=== PATIENT | female | born 1955 | race Caucasian/White ===

== ENCOUNTER 2024-12-13 17:07 | Emergency (ER) | payer OTHER, SELFPAY ==
[2024-12-13 17:10] VITALS: BP 167/91
--- NOTE | 2024-12-13 17:54 | ED.GENMED ---
History of Present Illness
General
Chief Complaint: Musculo-Skeletal Complaint
Time Seen by Provider: 12/13/24 17:54
History of Present Illness
History of Present Illness:
TIME OF INITIAL EVALUATION
- 6 PM
REVIEW OF OLD RECORDS
- The patient denies any significant past medical history. No old records available for review in [facility]
Note:
CHIEF COMPLAINT(S)
Inability to walk due to severe pain in the right leg, starting a week ago.
HISTORY OF PRESENT ILLNESS
The patient is a 69-year-old female who presents with severe pain in the right leg, described as 10 out of 10 in intensity, which began approximately a week ago. The pain originates from the lower back and radiates down the right leg. The patient
denies any trauma or injury at the onset of symptoms. Physical examination revealed significant pain when pressure was applied over the bursa region, suggesting inflammation, but there was no increased pain with palpation of the backbones. The
patient experiences worsening pain with elevation of the right leg and pressure applied to it, consistent with sciatica due to a possible pinched nerve.
After discussing possible causes, it was decided that the patient might benefit from oral steroid treatment, as x-rays would not be beneficial for evaluating soft tissues like nerves or bursa. The patient has been using ibuprofen at home, but with
minimal relief, especially over the last two days, which prompted the visit to the medical facility.
PHYSICAL EXAM
General: Alert, no acute distress.
Skin: Warm, dry.
Head: Normocephalic, atraumatic.
Neck: Supple, trachea midline.
Eye Ears, nose, mouth and throat: Oral mucosa moist.
Cardiovascular: Normal peripheral perfusion, No edema.
Respiratory: Respirations are non-labored.
Gastrointestinal: Abdomen nondistended, no pain on palpation.
Back: Normal range of motion, Normal alignment.
Musculoskeletal: Normal ROM, normal strength overall, but increased pain on leg elevation consistent with borderline positive straight leg raise
Neurological: Alert and oriented to person, place, time, and situation, No focal neurological deficit observed. She has excellent strength in an L5 and S1 distribution to the right lower extremity
Psychiatric: Cooperative, appropriate mood & affect.
PLAN
1. Administer a dose of prednisone in the medical facility.
2. Prescribe prednisone for the next four days to help reduce inflammation and relieve symptoms.
3. Provide the patient with the contact information for an capacity management specialist for further evaluation.
4. Consider the administration of Toradol as an immediate pain relief measure.
5. Advise patient to follow up with the capacity management specialist for further imaging and management if symptoms persist.
DIFFERENTIAL DIAGNOSIS
The Differential Diagnosis includes, in no particular order and is not limited to:
1. Sciatica due to lumbar radiculopathy
2. Trochanteric bursitis
3. Lumbar disc herniation
4. Lumbar spinal stenosis
5. Muscular strain of the lower back
6. Osteoarthritis of the hip or lumbar spine
7. Sacroiliitis
8. Piriformis syndrome
9. Peripheral neuropathy
10. Vascular claudication
RADIOLOGY
- The patient has a normal neurologic examination, no clear indication for imaging at this time and she denies any trauma
UPDATE
-SUMMARY OF ENCOUNTER
The patient, a 69-year-old female, presented to the emergency department with severe pain originating in the right low back/hip area and radiating down the right leg, lasting approximately one week. The pain was consistent with the symptoms often
associated with sciatica. In the emergency department, the decision was made to administer Toradol and prednisone to help manage the inflammation and relieve pain. The choice of medications was made to address the suspected inflammation and
nerve-related pain, considering the ineffectiveness of ibuprofen previously used by the patient.
PLAN
Prescribe prednisone for the patient to take over the next four days to continue reducing inflammation and manage pain.
PATIENT EDUCATION AND COUNSELING
The patient was informed about the nature of her symptoms, suspecting sciatica as a potential cause. Discussed the importance of follow-up care and provided her with contact information for an capacity management specialist for further evaluation.
FOLLOW-UP INSTRUCTIONS
Advised the patient to schedule a follow-up appointment with an capacity management specialist to assess her condition further and obtain additional imaging if necessary.
MEDICATION RECONCILIATION
Prednisone was administered in the emergency department. A prescription for prednisone was sent to the patient�s pharmacy for continued use over the next four days.
MEDICAL DECISION MAKING
- Number and Complexity of Problems Addressed: Chronic conditions affecting care include sciatica due to lumbar radiculopathy, trochanteric bursitis, lumbar disc herniation, lumbar spinal stenosis, muscular strain of the lower back, osteoarthritis
of the hip or lumbar spine, sacroiliitis, piriformis syndrome, peripheral neuropathy, vascular claudication.
- Data:
Category 1: No specific labs or imaging were ultimately chosen for this visit due to the nature of the symptoms.
Category 2: My independent interpretation of patient symptoms led to the suspicion of sciatica and the administration of medications.
- Risk: Prescription medication was prescribed (prednisone) to manage inflammation and pain. Consideration of Admission/Observation: Escalation of care including admission/observation was considered given the complexity and risk of the patients
presenting complaint, exam findings, and/or their underlying comorbidities. However, ultimately I feel the patient is safe for outpatient management with close follow-up. Reasoning: Work-up reassuring, does not reveal any acute
life/organ-threatening processes, patients symptoms well controlled upon reevaluation, reexamination is reassuring, vitals are stable, patient agreeable with discharge, reliable for follow-up.
DIAGNOSIS
Sciatica (M54.3).
Phy Exam
Physical Exam
Physical Exam:
See HPI
Course
Orders/Labs/Results
Orders:
Orders
12/13/24 18:03
Ketorolac [Toradol] 30 mg IM NOW STA
Prednisone [Deltasone] 50 mg PO NOW STA
Vital Signs
Initial and Last Documented VS:
Initial Vital Signs
Temp Pulse Resp BP Pulse Ox
36.8 C 77 16 167/91 99
12/13/24 17:10 12/13/24 17:10 12/13/24 17:10 12/13/24 17:10 12/13/24 17:10
Last Documented Vital Signs
Temp Pulse Resp BP Pulse Ox
36.8 C 77 16 167/91 99
12/13/24 17:10 12/13/24 17:10 12/13/24 17:10 12/13/24 17:10 12/13/24 17:55
*Pulse Oximetry
SaO2: 99
Oxygen Mode of Delivery: Room air
Patient hypoxic: no
*Critical Care Note
Total Time (30-74mins, 75-104mins- exclusive of procedures): Not Applicable
ED Attending Note
-
Portions of this chart may have been created with voice recognition software.� Occasional wrong word or��sound alike� substitutions may have occurred due to the inherent limitations of voice recognition software.
Discharge Plan
Departure
Patient Disposition: Home (Routine Discharge)
Date of Disposition: 12/13/24
Time of Disposition: 18:04
Patient with high blood pressure during this ER visit?: Yes
Discharge Problem:
Sciatica
Instructions: Exercises for sciatic pain, Sciatica - ED discharge instructions
Prescriptions:
New
prednisone 50 mg tablet
50 mg PO DAILY Qty: 5 0RF
Referrals:
Francis Oneal MD [Active, Orthopedics]
Activity Restrictions/Additional Instructions:
Since we are placing you on prednisone, I recommend that you stop ibuprofen as taking the 2 together can be very irritating to the stomach. We also give a dose of Toradol. I have given you the contact information for local orthopedist to follow-up
with. Return here if worse or other concerns.
Discharge Date and Time
Print Language: YORUBA
[2024-12-13] MEDS: DELTASONE 50 MG PO (18:10)
[2024-12-13] MEDS: TORADOL 30 MG IM (18:11)
[2024-12-13 18:15] VITALS: BMI 24.6
== END 2024-12-13 18:27 | disposition home or self-care (01) ==
LOC: EMR 17:07
PROVIDERS: EMERGENCY PHYSICIAN Emergency Medicine; FAMILY PHYSICIAN Family Medicine
DX: M54.41 Lumbago with sciatica, right side (principal); R26.2 Difficulty in walking, not elsewhere classified; R03.0 Elevated blood-pressure reading, without diagnosis of hypertension
CPT/HCPCS: 99284; 96372